=== PATIENT | female | born 1960 ===

== ENCOUNTER 2021-12-29 09:18 | Outpatient (CLI) | payer OTHER | END 2021-12-29 09:20 | disposition home or self-care (01) | LOC: SONOGRAMA 09:18 | PROVIDERS: ATTEND Pathology Anatomic Pathology & Clinical Pathology | DX: E04.2 Nontoxic multinodular goiter (principal) ==

== ENCOUNTER 2024-09-18 16:51 | Outpatient (CLI) | payer OTHER | END 2024-09-18 16:54 | disposition home or self-care (01) | LOC: SONOGRAMA 16:51 | PROVIDERS: ATTEND Pathology Anatomic Pathology & Clinical Pathology | DX: E04.2 Nontoxic multinodular goiter (principal); E06.3 Autoimmune thyroiditis ==